=== PATIENT | male | born 1980 ===

== ENCOUNTER 2023-03-02 21:27 | Observation (INO) ==
[2023-03-03 01:41] LABS: Hematocrit 44.4 % (38-53); Hemoglobin 15.7 g/dL (13.2-16.3); Mean Corpuscular Hemoglobin 31.7 pg (27-33); Mean Corpuscular Hgb Conc 35.3 g/dL (31-36); Mean Corpuscular Volume 89.9 fL (80-97); Mean Platelet Volume 9.2 fL (7.5-11.2); Platelet Count 44 10^3/uL (150-450); Red Blood Count 4.94 10^6/uL (4.06-5.63); Red Cell Distribution Width 12.9 % (12-17); White Blood Count 2.3 10^3/uL (3.6-10.2)
[2023-03-03 01:54] LABS: Albumin 4.4 g/dL (3.2-5.2); Albumin/Globulin Ratio 1.6 (1-3); C Reactive Protein 86.32 mg/L (<8.01); Calcium 9.5 mg/dL (8.6-10.3); Creatinine, Serum 0.91 mg/dL (0.67-1.17); Globulin 2.8 g/dL (2-4); Total Bilirubin 0.6 mg/dL (0.2-1.0); Total Protein 7.2 g/dL (6.4-8.9); eGFR CKD-EPI 108.6 (>60)
[2023-03-03 01:56] LABS: Potassium 4.1 mmol/L (3.5-5.0)
[2023-03-03 02:14] LABS: ABS Lymphocytes 1.3 10^3/uL (1.0-4.8); ABS Monocytes 0.2 10^3/uL (0.0-1.1); ABS Neutrophils 0.7 10^3/uL (1.5-7.6); ABS Nucleated RBC 0.01 10^3/ul; Eosinophil % 0.8 %; Nucleated Red Blood Cells % 0.3 /100 WBC (0.0-0.4)
[2023-03-03] MEDS ORDERED: Piperacillin/Tazobac 3.375 BAG 3.375 GM/100 ML BAG IV ONE (03:21)
[2023-03-03] MEDS ORDERED: Vancomycin 1,000 MG VIAL IVPB ONE (03:22)
[2023-03-03] MEDS ORDERED: Vancomycin 1,000 MG - ED ONCE IVPB ONE (03:30)
[2023-03-03 04:10] LABS: Activated Partial Thrombo Time 30.6 seconds (26.0-38.0); INR 1.04 (0.88-1.18)
[2023-03-03] MEDS ORDERED: Vancomycin 1,000 MG BAG/ADDV ONE (04:48)
[2023-03-03] MEDS ORDERED: Enoxaparin 40 MG/0.4 ML SYR SUBCUT SCH (06:00)
[2023-03-03] MEDS ORDERED: DOXYcycline 100 MG in NS 0.9% 250 ml 250 ML IVPB SCH (08:00)
[2023-03-03 08:45] LABS: Urine Appearance Clear; Urine Bilirubin Negative (Negative); Urine Blood Negative (Negative); Urine Color Yellow; Urine Glucose Negative (Negative); Urine Ketones Trace (Negative); Urine Nitrite Negative (Negative); Urine Protein Negative (Negative); Urine Specific Gravity 1.009 (1.002-1.030); Urine Urobilinogen Negative (Negative)
[2023-03-03 15:17] VITALS: BP 120/79
[2023-03-07 11:24] LABS: Anaplasma phagocytophilum Positive (Negative); B. miyamotoi PCR, B Negative (Negative); Babesia divergens/MO-1 Negative (Negative); Babesia ducani Negative (Negative); Ehrlichia chaffeensis Negative (Negative); Ehrlichia ewingii/canis Negative (Negative); Ehrlichia muris eauclairensis Negative (Negative)
== END 2023-03-03 15:18 | disposition home or self-care (01) ==
LOC: ED 21:27 → EDHOLD 21:27 → SUATTDRO 03-03 05:28 → EDHOLD 03-03 15:17
PROVIDERS: ADMIT Internal Medicine; ATTEND Internal Medicine